=== PATIENT | male | born 1990 | race Caucasian/White ===

== ENCOUNTER 2024-03-26 09:03 | Outpatient (AMB) | payer OTHER, SELFPAY ==
--- NOTE | 2024-03-26 09:19 | AM.OFFWIN_ITS ---
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 While every effort has been made to ensure accuracy, full decator operator errors may have been included. The patient is a 34 year old male who presents to the clinic today with back pain. Patient reports that he was building a basketball hoop with his brother last Tuesday when he was doing much stretching and developed the pain in his lower back. It has since started radiating up his back. He has tried topical lidocaine, heat/ice, Tylenol, Motrin, all seemed to give slight effect but not complete resolution of pain. He denies numbness and tingling in his hands and feet. He denies loss of control of bladder or bowel. He denies previous injury or surgery to the area. [facility] Social History Patient Tobacco Use Status: Never used Tobacco Review of Systems Const All systems reviewed & are unremarkable except as noted in HPI and below Physical Exam Vital Signs: Last Vital Signs Pulse 71 03/26/24 09:20 BP 138/98 H 03/26/24 09:20 Pulse Ox 98 03/26/24 09:20 Oxygen Delivery Method Room Air 03/26/24 09:20 BMI result Body Mass Index 33.7 Const General: cooperative, healthy appearing, comfortable, no acute distress and well developed Orientation/consciousness: patient oriented x3 Limitations: no limitations Resp Effort & Inspection: normal respiratory effort and able to speak in complete sentences Back/Spine/Pelvis Other: Paraspinal muscle tenderness bilaterally from lumbar to lower thoracic region. Flexion, extension, rotation normal, however has increased pain with flexion in his region. Negative SLR, negative well SLR. Increased muscle bulging in paraspinal region lumbar bilaterally. Skin General skin exam: no rashes or lesions noted Neuro General: patient oriented x3 Extrem General: Yes normal to inspection Assessment & Plan Assessment & Plan (1) Lumbago: Code(s): M54.50 - Low back pain, unspecified Qualifiers: Chronicity: acute Back pain laterality: bilateral Sciatica presence: without sciatica Qualified Code(s): M54.50 - Low back pain, unspecified Plan: Appears muscular in nature. Advised NSAIDs, rest, ice/heat. Okay to continue topical lidocaine. Muscle relaxer prescribed for symptomatic management. Advised on side effects of muscle relaxer including sedation. Advised remain out of work for tonight. Advised to follow up with PCP with worsening symptoms or failure to resolve. Plan See above for full details and plan. Medications: New cyclobenzaprine 10 mg PO TID PRN 10 tabs 0RF muscle spasm Coding Level of Care Code New Pt Level 3 (04870) Diagnoses Acute bilateral low back pain without sciatica M54.50 Chronicity: acute Back pain laterality: bilateral Sciatica presence: without sciatica
[2024-03-26 09:20] VITALS: BP 138/98; PULSE 71; O2SAT 98; BMI 33.7
== END 2024-03-26 09:34 | disposition home or self-care (01) ==
PROVIDERS: PCP Internal Medicine; Visit Provider Registered Nurse
DX: M54.50 Low back pain, unspecified (principal)

== ENCOUNTER 2024-07-10 10:04 | Outpatient (REF) | payer OTHER, SELFPAY ==
[2024-07-10 13:19] LABS: MANUAL DIFF FLAG NO
[2024-07-10 13:28] LABS: Basophils Percent Auto 0.5 % (0-2); Eosinophils Absolute Auto 0.2 X10*3/uL (0.0-0.4); Eosinophils Percent Auto 2.9 % (0-4); Hematocrit 44.7 % (42.0-52.0); Hemoglobin 14.9 g/dl (14.0-18.0); Imm Gran Abs Auto 0.01 X10*3/uL (0.00-0.03); Imm Gran Pct Auto 0.2 % (0.0-0.4); Lymphocytes Absolute Auto 1.8 X10*3/uL (1.2-4.9); Mean Corpuscular HGB Conc 33.3 g/dl (31.0-36.0); Mean Corpuscular Hemoglobin 28.1 pg (27.0-33.0); Mean Corpuscular Volume 84.2 fL (80.0-98.0); Mean Platelet Volume 10.9 fL (9.4-12.4); Monocytes Absolute Auto 0.4 X10*3/uL (0.1-1.2); Monocytes Percent Auto 6.9 % (2-11); Neutrophils Absolute Auto 3.8 x10*3/uL (2.0-8.3); Neutrophils Percent Auto 60.5 % (45-73); Platelet Count 254 X10*3/uL (160-400); Red Blood Count 5.31 X10*6/uL (4.60-5.80); Red Cell Distribution Width 13.4 % (11.0-16.0); White Blood Count 6.3 X10*3/uL (4.8-10.8)
[2024-07-10 13:46] LABS: Alanine Aminotransferase 27 U/L (0-40); Albumin Level 4.2 g/dL (3.5-5.0); Alkaline Phosphatase 71 U/L (39-117); Anion Gap 9 (12-20); Aspartate Amino Transferase 24 U/L (5-37); Bilirubin Total 0.6 mg/dL (0.0-1.0); Blood Urea Nitrogen 16 mg/dL (9-16); Calcium 8.9 mg/dL (8.4-10.2); Carbon Dioxide 27 mmol/L (22-29); Chloride 109 mmol/L (96-108); Estimated Glomerular Filt Rate > 60; Glucose Random 92 mg/dL (60-115); Potassium 3.8 mmol/L (3.3-5.1); Sodium 141 mmol/L (135-145); Total Protein 8.1 g/dL (6.5-8.0)
== END 2024-07-10 10:05 | disposition home or self-care (01) ==
LOC: HO.HMGCLDS 10:04
PROVIDERS: PCP Internal Medicine; Visit Provider Internal Medicine
DX: Z00.00 Encounter for general adult medical examination without abnormal findings (principal); Z13.0 Encounter for screening for diseases of the blood and blood-forming organs and certain disorders involving the immune mechanism; Z13.220 Encounter for screening for lipoid disorders; Z13.228 Encounter for screening for other metabolic disorders
CPT/HCPCS: 36415; 80053; 85025

== ENCOUNTER 2024-12-27 11:16 | Outpatient (AMB) | payer OTHER, SELFPAY ==
--- NOTE | 2024-12-27 11:19 | A.OFFPC_ITS ---
Vital Signs 12/27/24 11:20 Height 5 ft 10 in Weight 253 lb 8 oz BMI 36.4 Intake Visit Reasons: ED/[facility]/Vertigo 12/16/24 / Darrian pt. Intake Note: Emergency room follow up Switch Adjuster Required: No Allergies No Known Allergies Allergy (Verified 12/27/24 11:22) Tobacco use date assessed: 12/27/24 Dental Screening Dental Screen Date: 05/29/24 HPI ED/[facility]/Vertigo 12/16/24 / Darrian pt. HPI Details Patient is a 34-year-old male who presents today for an ER follow up. He was seen at the emergency room on 12/16 with complaints of dizziness. He was seen 2 weeks prior to this in an urgent care and diagnosed with vertigo. At the ER they did do a CBC and BMP which were normal. They did a head CT without any abnormalities. I did put in a referral to vestibular rehab prior to seeing him and he is scheduled today. He states that he was sitting on his couch 3 weeks ago when out of nowhere he just felt dizzy. He states it felt like his eyes were vibrating/spinning. He tells me that he had to go and lie down and the next day the symptoms were still present and have been present since then. He states it is worse if he moves his head and he can just feel this dizziness hanging out in the background. He states he feels off balance and like things are spinning. He has not noticed an y numbness, tingling or weakness. He has noticed some associated nausea and headaches with the dizziness. His significant other is here today with him and states that she has been helping him with driving. 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 At the ED they did give him meclizine which takes the edge off. He denies any URI, sinus pain or pressure, fever, chills, recent travel, chest pain no shortness on breath. When he went to the ER he did complain of chest pain or shortness on breath but has been feeling well. 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 1. Little interest or pleasure in doing things: not at all 2. Feeling down, depressed, or hopeless: not at all 3. Trouble falling or staying asleep, or sleeping too much: not at all 4. Feeling tired or having little energy: not at all 5. Poor appetite or overeating: not at all 6. Feeling bad about yourself - or that you are a failure or have let yourself or your family down: not at all 7. Trouble concentrating on things, such as reading the newspaper or watching television: not at all 8. Moving or speaking so slowly that other people could have noticed. Or the opposite - being so fidgety or restless that you have been moving around a lot more than usual: not at all 9. Thoughts that you would be better off or of hurting yourself in some way: not at all Total score: 0 Source: Developed by Drs. Robel Boss, Ness Yousif, Tyrel Saul and colleagues, with an educational marlon from [employer]. Thrive Questionnaire Date Thrive assessed: 05/28/24 I am a: Patient What is your living situation today?: I have a steady place to live Within the past 12 months, did the food you bought not last and you didn't have the money to get more?: Never true Within the past 12 months, did you worry whether your food would run out before you got money to buy more?: Never true Do you have trouble paying for medicines?: No Do you have trouble getting transportation to medical appointments?: No Do you have trouble paying your heating and electricity bill?: No Do you have trouble taking care of your child, family member or friend?: No Do you have trouble with day-to-day activities such as bathing, preparing meals, shopping, managing finances, etc.?: No Are you currently unemployed and looking for a job?: No Are you interested in more education?: No Please select the resources that you would like help with: None Currently or been in a relationship where the following occur: No concerns reported THRIVE Score: 0 AUDIT C Alcohol Use Questionnaire (AUDIT-C) 1. How often do you have a drink containing alcohol?: Monthly or less 2. How many drinks containing alcohol do you have on a typical day when you are drinking?: 1 or 2 3. How often do you have six or more drinks on one occasion?: Never Total Score: 1 ANGEL-7 AMB Questionnaire ANGEL-7 Date ANGEL - 7 assessed: 05/29/24 Feeling nervous, anxious, or on edge: 0 = Not at all Not being able to stop or control worryin = Not at all Worrying too much about different things: 0 = Not at all Trouble relaxin = Not at all Being so restless that it is hard to sit still: 0 = Not at all Becoming easily annoyed or irritable: 0 = Not at all Feeling afraid as if something awful might happen: 0 = Not at all Total ANGEL-7 score (0-4 normal; 5-9 mild; 10-14 moderate; 15-21 severe): 0 Source: Developed by Drs. Robel Boss, Ness Yousif, Tyrel Saul and colleagues, with an educational marlon from [employer]. Physical exam (Primary Care) BMI result Body Mass Index 36.4 Tobacco/Smoking Status: Tobacco use Status Tobacco use date assessed 12/27/24 12/27/24 11:26 Patient Tobacco Use Status Never used Tobacco 12/27/24 11:26 e-Cigarette/Vaping Use Never Used 12/27/24 11:26 PHQ-9: PHQ-9 Score PHQ-9: Total score 0 12/27/24 11:26 Thrive Assessment: Date of Thrive Assessment Date Thrive assessed 05/28/24 12/27/24 11:26 Currently or been in a relationship where the following occur: No concerns reported Const Orientation/consciousness: patient oriented x3 HENMT Ears: hearing grossly normal bilaterally and TM's normal bilaterally Face and sinus: Yes sinuses nontender Mouth: Normal oral and palatal mucosa present Throat: Yes posterior oropharynx normal Neck Thyroid: Thyroid normal Lymphatic: no lymphadenopathy noted Resp Auscultation: clear to auscultation bilaterally Cardio Rate: regular rate Rhythm: regular rhythm Heart sounds: S1 normal heart sound present and S2 normal heart sound present GI Inspection: Yes normal to inspection Palpation (GI): Soft to palpation and Other GI palpation findings present (nontender, no cva tenderness) Auscultation: normoactive bowel sounds Rectal Exam - Male: Yes deferred Skin General skin exam: no rashes or lesions noted Neuro General: patient oriented x3, gait normal, no focal motor deficits and CN's II- XI intact bilaterally Cognition (Neuro): normal cognition Motor exam (neuro): 5/5 motor strength present throughout and no tremor noted Coordination: [id number] test normal, bmme-bl-[id number] test normal, Romberg test negative and rapid alternating movements of the distal upper extremity normal Extrem General: Yes normal to inspection and Yes full ROM Coding Level of Care Code Est Pt Level 4 (19477) Complex EM visit Add On G2211 Diagnoses Vestibular disequilibrium H83.2X9 Dizziness R42 Assessment & Plan Assessment & Plan (1) Vestibular disequilibrium: Code(s): H83.2X9 - Labyrinthine dysfunction, unspecified ear Category: Medical Plan: Referral to PT (2) Dizziness: Code(s): R42 - Dizziness and giddiness Category: Medical Plan: Labs ordered today MRI ordered We will try PT Meclizine ordered Short term follow up. Sooner if needed. Orders: Orders Lyme IgG/IgM w/reflex to WB Today H83.2X9 - Labyrinthine dysfunction, unspecified ear, R42 - Dizziness and giddiness Erythrocyte Sedimentation Rate Today H83.2X9 - Labyrinthine dysfunction, unspecified ear, R42 - Dizziness and giddiness MR head/brain wo con Today H83.2X9 - Labyrinthine dysfunction, unspecified ear, R42 - Dizziness and giddiness Complete Blood Count Auto Diff Today H83.2X9 - Labyrinthine dysfunction, unspecified ear, R42 - Dizziness and giddiness Basic Metabolic Panel Today H83.2X9 - Labyrinthine dysfunction, unspecified ear, R42 - Dizziness and giddiness TSH reflex Free T4 Today H83.2X9 - Labyrinthine dysfunction, unspecified ear, R42 - Dizziness and giddiness Medications: New meclizine 25 mg PO BID-TID PRN 90 tabs 0RF dizziness 30 days
[2024-12-27 11:20] VITALS: BMI 36.4
== END 2024-12-27 11:51 | disposition home or self-care (01) ==
LOC: HO.HMCFM 11:18
PROVIDERS: PCP Internal Medicine; Visit Provider Physician Assistant
DX: H83.2X9 Labyrinthine dysfunction, unspecified ear (principal); R42 Dizziness and giddiness

== ENCOUNTER 2024-12-27 13:59 | Outpatient (RCR) | payer OTHER, SELFPAY ==
[2024-12-27 14:10] VITALS: BP 120/72; PULSE 84
--- NOTE | 2024-12-27 15:08 | MHC.PT.EP ---
[facility] [place] Office [place] Office [place] Office [address] [phone] F: [phone] F: [phone] F: [phone] F: [phone] Physical Therapy Plan of Care Date of Evaluation: 12/27/24 Date of Surgery: NA Diagnosis: Labyrinthine dysfunction Assessment: James is a 34 year old male who is referred to PT for labyrinthine dysfunction . He reports of having sudden onset of dizziness with supine to sit, sit stand, rolling and strenuous activities. He reports of having a sense of constant unsteadiness which is worse with motion and better with meclizine. He also reports of having nausea. On PT examination he presented with intact visual tracking, intact saccades, intact smooth pursuit, negative VBI, DVA and negative head thrust. He presented with good static and dynamic balance. Only reported of mild dizziness with horizontal head turns. He was negative for BPPV in [place] p[place] and B roll test. He presents with very mild symptoms of vestibular dysfunction which can be managed with HEP. He will therefore be trialing HEP for his symptoms instead of coming to PT. Frequency and Duration: The patient will be seen Short Term Goals: Usp Goals: Treatment Plan: Modalities to reduce pain, spasms and effusion. Manual therapy to restore motion and function. Therapeutic exercise to improve strength and flexibility. Neuromuscular re-education for posture and balance. Therapeutic activities to return to functional activities of daily living. Electronically signed by: Azucena Burroughs PT DPT Please sign and return to therapist. Thank you for your referral.
--- NOTE | 2025-01-31 14:45 | MHC.PT.DC ---
[facility] [place] Office [place] Office [place] Office [address] Lesa Ramirez 140 [facility] [phone] F: [phone] F: [phone] F: [phone] F: [phone] Physical Therapy Discharge Report Diagnosis: Labyrinthine dysfunction Date of Surgery: NA Date of Evaluation: 12/27/24 Date of Discharge: 01/31/25 Treatments to Date: 1 Cancellations to Date: 0 No Shows to Date: 0 Discharge Status: Discharge Summary: James has had no symptoms of vestibular dysfunction in over a month. He is therefore being d/c from PT. Electronically signed by: Azucena Burroughs PT DPT Please sign and return to therapist. Thank you for your referral.
== END 2025-01-31 14:46 | disposition home or self-care (01) ==
LOC: HO.PT 13:59
PROVIDERS: PCP Internal Medicine; Visit Provider Physician Assistant
DX: H83.2X9 Labyrinthine dysfunction, unspecified ear (principal); R42 Dizziness and giddiness
CPT/HCPCS: 97112; 97161

== ENCOUNTER 2024-12-27 16:05 | Outpatient (REF) | payer OTHER, SELFPAY ==
[2024-12-27 17:54] LABS: MANUAL DIFF FLAG NO
[2024-12-27 17:59] LABS: Hematocrit 45.4 % (42.0-52.0); Hemoglobin 15.6 g/dl (14.0-18.0); Imm Gran Abs Auto 0.02 X10*3/uL (0.00-0.03); Imm Gran Pct Auto 0.3 % (0.0-0.4); Lymphocytes Absolute Auto 1.8 X10*3/uL (1.2-4.9); Mean Corpuscular HGB Conc 34.4 g/dl (31.0-36.0); Mean Corpuscular Hemoglobin 28.5 pg (27.0-33.0); Mean Corpuscular Volume 83.0 fL (80.0-98.0); NRBC Abs Auto 0.000 X10*3/uL (0.0-0.012); NRBC Pct Auto 0.0 /100WBC (0.0-0.2); Platelet Count 277 X10*3/uL (160-400); Red Blood Count 5.47 X10*6/uL (4.60-5.80); White Blood Count 6.8 X10*3/uL (4.8-10.8)
[2024-12-27 18:45] LABS: Anion Gap 13 (12-20); Blood Urea Nitrogen 9 mg/dL (9-16); Calcium 9.6 mg/dL (8.4-10.2); Carbon Dioxide 27 mmol/L (22-29); Chloride 105 mmol/L (96-108); Estimated Glomerular Filt Rate > 60; Potassium 3.9 mmol/L (3.3-5.1); Sodium 141 mmol/L (135-145)
[2024-12-28 09:49] LABS: Lyme Abs Screen <0.90 index
== END 2024-12-27 16:06 | disposition home or self-care (01) ==
LOC: HO.CHCLDS 16:05
PROVIDERS: Visit Provider Physician Assistant
DX: H83.2X9 Labyrinthine dysfunction, unspecified ear (principal); R42 Dizziness and giddiness; Z01.84 Encounter for antibody response examination
CPT/HCPCS: 36415; 80048; 84443; 85025; 85652; 86617; 86618

== ENCOUNTER 2025-02-08 08:52 | Outpatient (AMB) | payer OTHER, SELFPAY ==
--- NOTE | 2025-02-08 08:55 | MHC.PC.OV ---
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 He was seen 2 weeks prior to this in an urgent care and diagnosed with vertigo. Saw my colleague on 12/27/24 for continued symptoms. He was referred to vestibular therapy. He attended vestibular therapy and continued to do those exercises at home. He has not needed meclizine recently. He will return to work on Feb 18. 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 ROS CONSTITUTIONAL: Denies weight loss, fever and chills. HEENT: Denies changes in vision and hearing. RESPIRATORY: Denies SOB and cough. CV: Denies palpitations and CP GI: Denies abdominal pain, nausea, vomiting and diarrhea. : Denies dysuria and urinary frequency. MSK: Denies new myalgia and joint pain. SKIN: Denies rash and pruritus. NEUROLOGICAL: Denies headache PSYCHIATRIC: Denies recent changes in mood. PHYSICAL EXAM: GENERAL: Alert and oriented x 3. NAD EYES: EOMI. Anicteric. HENT: Moist mucous membranes. No scleral icterus. No cervical lymphadenopathy. LUNGS: Clear to auscultation bilaterally. CARDIOVASCULAR: Regular rate and rhythm. No murmur. No JVD. ABDOMEN: Soft, non-tender +bs EXTREMITIES: No edema. Non-tender. SKIN: No rashes or lesions. Warm. NEUROLOGIC: No focal neurological deficits. CN II-XII grossly intact PSYCHIATRIC: Cooperative. Appropriate mood and affect [facility] Surgical History (Updated 08/28/24 @ 07:24 by Trina Arroyo) No pertinent past surgical history Family History (System 08/28/24 @ 07:24 by Trina Arroyo) Father Afib Lymphoma Sister FH: mental illness Paternal Uncle Substance abuse Other Bile duct adenocarcinoma Social History (System 08/28/24 @ 07:24 by Trina Arroyo) Housing: House Alcohol intake: current Patient Tobacco Use Status: Never used Tobacco e-Cigarette/Vaping Use: Never Used Second Hand Smoke Exposure: No Substance Use Type: Marijuana service: No Current occupational status: employed 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 Current occupational exposures/hazards: No Cognitive needs: No Hearing needs: No Vision needs: No Questionnaire Thrive Questionnaire Date Thrive assessed: 12/27/24 I am a: Patient What is your living situation today?: I have a steady place to live Within the past 12 months, did the food you bought not last and you didn't have the money to get more?: Never true Within the past 12 months, did you worry whether your food would run out before you got money to buy more?: Never true Do you have trouble paying for medicines?: No Do you have trouble getting transportation to medical appointments?: No Do you have trouble paying your heating and electricity bill?: No Do you have trouble taking care of your child, family member or friend?: No Do you have trouble with day-to-day activities such as bathing, preparing meals, shopping, managing finances, etc.?: No Are you currently unemployed and looking for a job?: No Are you interested in more education?: No Please select the resources that you would like help with: None Currently or been in a relationship where the following occur: No concerns reported THRIVE Score: 0 ANGEL-7 AMB Questionnaire ANGEL-7 Date ANGEL - 7 assessed: 05/29/24 Source: Developed by Drs. Robel Boss, eNss Yosuif, Tyrel Saul and colleagues, with an educational marlon from [employer]. Physical exam (Primary Care) Vital Signs: Last Vital Signs Pulse 96 02/08/25 08:58 Resp 14 02/08/25 08:58 BP 126/82 02/08/25 08:58 Pulse Ox 96 02/08/25 08:58 Oxygen Delivery Method Room Air 02/08/25 08:58 BMI result Body Mass Index 37.4 Tobacco/Smoking Status: Tobacco use Status Tobacco use date assessed 02/08/25 02/08/25 09:00 Patient Tobacco Use Status Never used Tobacco 02/08/25 08:57 e-Cigarette/Vaping Use Never Used 02/08/25 08:57 Thrive Assessment: Date of Thrive Assessment Date Thrive assessed 12/27/24 02/08/25 08:57 Currently or been in a relationship where the following occur: No concerns reported Coding Level of Care Code Est Pt Level 3 (68246) Diagnoses Vestibular disequilibrium, unspecified laterality H83.2X9 Laterality: unspecified laterality Assessment & Plan Assessment & Plan (1) Vestibular disequilibrium: Code(s): H83.2X9 - Labyrinthine dysfunction, unspecified ear Category: Medical Qualifiers: Laterality: unspecified laterality Qualified Code(s): H83.2X9 - Labyrinthine dysfunction, unspecified ear Plan BPPV Improved following vestibular therapy Work note provided
[2025-02-08 08:58] VITALS: BP 126/82; PULSE 96; RESP 14; O2SAT 96; BMI 37.4
== END 2025-02-08 09:58 | disposition home or self-care (01) ==
LOC: HO.HMCFM 08:53
PROVIDERS: PCP Internal Medicine; Visit Provider Internal Medicine
DX: H83.2X9 Labyrinthine dysfunction, unspecified ear (principal)